=== PATIENT | female | born 2000 | race Caucasian/White ===

== ENCOUNTER 2023-02-05 13:38 | Emergency (ER) | payer MEDICAID ==
[2023-02-05] MEDS ORDERED: Lidocaine 1% 5 ML VIAL INJECT ONE (13:49)
[2023-02-05] MEDS ORDERED: Diphtheria,Pertussis(Acell),Tetanus Vaccine 0.5 ML Syringe IM ONE (13:51)
[2023-02-05] MEDS ORDERED: Ondansetron 4 MG Tab.DIS PO ONE (13:51)
[2023-02-05] MEDS ORDERED: Bacitracin Oint 1 GM U/D Packet TOP ONE (14:46)
== END 2023-02-05 15:27 | disposition home or self-care (01) ==
LOC: LL.ED 13:38
DX: S61.411A Laceration without foreign body of right hand, initial encounter (principal); Z23 Encounter for immunization; W26.8XXA Contact with other sharp object(s), not elsewhere classified, initial encounter
CPT/HCPCS: 12002; 90471; 90715; 99283; 99283-25; A9270-GY; J3490

== ENCOUNTER 2025-03-03 07:03 | Observation (INO) | payer SELFPAY ==
[2025-03-03] MEDS: Ondansetron 4 MG/2 ML SDV IVPUSH ONE ×2 (07:23→09:28)
[2025-03-03] MEDS: Sodium Chloride 0.9% 10 ML Syringe FLUSH PRN (07:24)
[2025-03-03 07:28] LABS: BASOPHILS ABSOLUTE AUTO 0.01 K/uL (0.00-0.20); BASOPHILS PERCENT AUTO 0.1 % (0.0-2.0); EOSINOPHILS ABSOLUTE AUTO 0.03 K/uL (0.00-0.50); EOSINOPHILS PERCENT AUTO 0.2 % (0.0-5.0); IMMATURE GRAN ABSOLUTE AUTO 0.04 10^3/uL (0.00-0.04); IMMATURE GRAN PERCENT AUTO 0.3 % (0.0-0.4); LYMPHOCYTES ABSOLUTE AUTO 1.26 K/uL (0.50-3.50); LYMPHOCYTES PERCENT AUTO 9.8 % (10.0-50.0); MONOCYTES ABSOLUTE AUTO 0.71 K/uL (0.00-1.00); MONOCYTES PERCENT AUTO 5.5 % (2.0-14.0); NEUTROPHILS ABSOLUTE AUTO 10.80 K/uL (1.40-7.00); NEUTROPHILS PERCENT AUTO 84.1 % (45.0-80.0); PLATELET COUNT,PLT 258 K/uL (150-350); RED BLOOD CELL COUNT 4.98 M/uL (3.77-5.09); RED CELL DISTRIBUTION WIDTH 12.0 % (11.2-14.1); WHITE BLOOD CELL COUNT,WBC 12.9 K/uL (4.0-10.2)
[2025-03-03] MEDS: Loperamide 2 MG Tab PO ONE (07:30)
[2025-03-03 07:44] LABS: ALANINE AMINOTRANSFERASE,ALT 27 U/L (12-78); ASPARTATE AMNIOTRANSFERASE,AST 17 U/L (15-37); BILIRUBIN TOTAL 0.7 mg/dL (0.2-1.0); BLOOD UREA NITROGEN,BUN 10 mg/dL (7-18); CARBON DIOXIDE,CO2 25.9 mmol/L (21.0-32.0); CHLORIDE,CL 103 mmol/L (98-107); CREATININE 0.82 mg/dL (0.51-1.17); GLUCOSE RANDOM 133 mg/dL (70-99); POTASSIUM,K 3.9 mmol/L (3.5-5.1); PROTEIN TOTAL,TP 7.4 g/dL (6.4-8.2); SODIUM,NA 139 mmol/L (136-145)
[2025-03-03 07:50] LABS: LACTIC ACID 1.6 mmol/L (0.4-2.0)
[2025-03-03 07:54] LABS: ESTIMATED GFR 102 mL/min (>=60)
[2025-03-03] MEDS: Promethazine 25 MG/ML SDV IM ONE (08:20)
[2025-03-03] MEDS: Ondansetron 4 MG/2 ML SDV ONE (09:29)
[2025-03-03] MEDS: Iopamidol 612 MG/ML 100 ML Bottle IVPUSH ONE (09:43)
[2025-03-03] MEDS: Prochlorperazine 10 MG/2 ML SDV IVPUSH ONE (11:37)
[2025-03-03] MEDS ORDERED: Promethazine 25 MG/ML SDV IM PRN (11:41)
[2025-03-03] MEDS: Ketorolac 15 MG/ML SDV IVPUSH PRN (17:23)
[2025-03-03] MEDS: Ondansetron 4 MG/2 ML SDV IVPUSH PRN (17:23)
[2025-03-04 07:19] LABS: BASOPHILS ABSOLUTE AUTO 0.03 K/uL (0.00-0.20); BASOPHILS PERCENT AUTO 0.3 % (0.0-2.0); EOSINOPHILS ABSOLUTE AUTO 0.20 K/uL (0.00-0.50); EOSINOPHILS PERCENT AUTO 2.2 % (0.0-5.0); IMMATURE GRAN ABSOLUTE AUTO 0.03 10^3/uL (0.00-0.04); IMMATURE GRAN PERCENT AUTO 0.3 % (0.0-0.4); LYMPHOCYTES ABSOLUTE AUTO 2.45 K/uL (0.50-3.50); LYMPHOCYTES PERCENT AUTO 26.5 % (10.0-50.0); MONOCYTES ABSOLUTE AUTO 0.66 K/uL (0.00-1.00); MONOCYTES PERCENT AUTO 7.1 % (2.0-14.0); NEUTROPHILS ABSOLUTE AUTO 5.87 K/uL (1.40-7.00); NEUTROPHILS PERCENT AUTO 63.6 % (45.0-80.0); PLATELET COUNT,PLT 207 K/uL (150-350); RED BLOOD CELL COUNT 4.47 M/uL (3.77-5.09); RED CELL DISTRIBUTION WIDTH 12.2 % (11.2-14.1); WHITE BLOOD CELL COUNT,WBC 9.2 K/uL (4.0-10.2)
[2025-03-04 07:34] LABS: BLOOD UREA NITROGEN,BUN 4.0 mg/dL (7-18); CARBON DIOXIDE,CO2 28.2 mmol/L (21.0-32.0); CHLORIDE,CL 104.0 mmol/L (98-107); CREATININE 0.7 mg/dL (0.51-1.17); EST CRCL DRUG DOSING (CG) 119.47 mL/min; GLUCOSE RANDOM 85.0 mg/dL (70-99); POTASSIUM,K 3.5 mmol/L (3.5-5.1); SODIUM,NA 136.0 mmol/L (136-145)
[2025-03-04 07:45] LABS: ESTIMATED GFR 123.0 mL/min (>=60)
== END 2025-03-04 13:45 | disposition home or self-care (01) ==
LOC: LL.ED 07:03 → LL.MS 11:05
PROVIDERS: ADMIT Emergency Medicine; ATTEND Emergency Medicine
DX: E86.0 Dehydration (principal); R11.10 Vomiting, unspecified; R19.7 Diarrhea, unspecified; F17.210 Nicotine dependence, cigarettes, uncomplicated; Z79.899 Other long term (current) drug therapy
CPT/HCPCS: 36415; 74019; 74177; 80048; 80053; 81025; 83605; 83690; 83735; 85025; 87045; 87046; 96361; 96372; 96374; 96376; 99285; A9270; J0780; J1885; J2405; J2470; J2550; J7030; Q9967; 96375; G0378